=== PATIENT | female | born 1990 | race Caucasian/White ===

== ENCOUNTER → 2024-12-19 10:45 | Outpatient (CLI) | payer OTHER, SELFPAY ==
--- NOTE | 2024-12-19 10:50 | DI.MRI.S_ITS ---
PROCEDURE: MR HEAD/BRAIN WO/W CON INDICATIONS: SYNCOPE TECHNIQUE: Noncontrast axial T1 spin echo, axial T2 fast spin echo, sagittal and axial FLAIR, coronal T2 fast spin echo, axial gradient echo, axial diffusion and ADC through the brain. After the administration of contrast, axial and coronal and sagittal 3D VIBE or T1 spin echo with fat saturation through the brain. COMPARISON: Merged With [facility], CT, CT HEAD WITHOUT CONTRAST, 10/13/2024, 21:38. FINDINGS: Image quality: Excellent. CSF Spaces: Basal cisterns are patent. No extra-axial fluid collections. Ventricles are normal in size and shape. Brain: No midline shift. No intracranial bleeds or masses. No abnormal intracranial enhancement. The brainstem appears normal. Diffusion-weighted images demonstrate no acute infarct. No chronic ischemic insults. Normal intravascular flow voids are present. Skull and face: Calvarial marrow is normal in signal. Orbits appear normal. Sinuses: Sinuses and mastoids appear clear. IMPRESSION: 1. No acute intracranial process. Dictated by: Aylin Cat M.D. on 12/19/2024 at 15:35 Approved by: Aylin Cat M.D. on 12/19/2024 at 15:36
== END ==
PROVIDERS: Referring Provider Psychiatry & Neurology Neurology; Visit Provider Psychiatry & Neurology Neurology
DX: H53.2 Diplopia (principal); R55 Syncope and collapse
CPT/HCPCS: 70553; A9579